=== PATIENT | male | born 1995 | race Caucasian/White ===

== ENCOUNTER 2023-03-28 09:11 | Emergency (ER) | payer SELFPAY ==
[~2023-03-28] VITALS: Ht 200.7 cm; Wt 122.7 kg
[2023-03-28] MEDS ORDERED: CYMBALTA30 M1 PO (09:34)
[2023-03-28 09:58] LABS: URINE WBC 0 /hpf (0-3)
[2023-03-28 10:12] LABS: BASO # 0.04 K/mm3 (0.02-0.10); EOS # 0.06 K/mm3 (0.04-0.40); EOS % 0.8 % (0.0-4.0); HEMATOCRIT 46.8 % (42.0-52.0); HEMOGLOBIN 16.3 g/dL (13.5-18.0); LYMPH# 1.82 K/mm3 (1.50-4.00); MEAN CELL VOLUME 86 fl (78-100); MEAN CORPUSCULAR HEMOGLOBIN 30 pg (27-31); MEAN CORPUSCULAR HGB CONC 35 g/dL (33-37); MEAN PLATELET VOLUME 9.4 fl (7.4-10.4); MONO # 0.69 K/mm3 (0.20-0.80); NEU # 4.55 K/mm3 (1.40-6.50); PLATELET COUNT 244 K/mm3 (130-400); RED BLOOD COUNT 5.46 M/mm3 (4.20-5.60); RED CELL DISTRIBUTION WIDTH 11.3 % (11.5-14.5); WHITE BLOOD COUNT 7.2 K/mm3 (4.8-10.8)
[2023-03-28 10:30] LABS: ALBUMIN 4.7 g/dL (3.5-5.0); URINE APPEARANCE CLEAR; URINE BILIRUBIN NEGATIVE (NEGATIVE); URINE BLOOD NEGATIVE (NEGATIVE); URINE COLOR YELLOW; URINE GLUCOSE NEGATIVE (NEGATIVE); URINE KETONE NEGATIVE (NEGATIVE); URINE LEUKOCYTE ESTERASE NEGATIVE (NEGATIVE); URINE MUCUS PRESENT (NOT PRESENT); URINE NITRATE NEGATIVE (NEGATIVE); URINE PROTEIN(semi-quant) TRACE (NEGATIVE); URINE UROBILINOGEN NORMAL (NORMAL)
[2023-03-28 10:32] LABS: TOTAL PROTEIN 7.4 g/dL (6.4-8.3)
[2023-03-28 10:34] LABS: TOTAL BILIRUBIN 0.5 mg/dL (0.2-1.2)
[2023-03-28] MEDS ORDERED: NORCO 325 MG-51 TA1 PO ×2 (11:42→11:58)
[2023-03-28 12:11] VITALS: BP 170/97
== END 2023-03-28 12:12 | disposition home or self-care (01) ==
LOC: ED 09:11
PROVIDERS: Physician Assistant
DX: M54.50 Low back pain, unspecified (principal); N50.812 Left testicular pain; R10.9 Unspecified abdominal pain; Z98.890 Other specified postprocedural states; Z96.89 Presence of other specified functional implants
CPT/HCPCS: J2270; J2550; Q9967